=== PATIENT | male | born 1935 | race African-American/Black ===

== ENCOUNTER 2024-01-18 13:15 | Emergency (ER) | payer MEDICARE ==
[2024-01-18 13:49] LABS: Absolute Basophils 0.1 K/uL (0-0.5); Absolute Eosinophils 0.2 K/uL (0-0.5); Absolute Neutrophil 6.3 K/uL (1.8-8.0); Basophils % 0.6 % (0-1.3); Eosinophils % 1.7 % (0-4.4); Hematocrit 40.9 % (39.6-49.0); Hemoglobin 13.9 g/dL (13.6-17.9); Lymphocytes % 20.7 % (15.3-44.8); MCH 31.7 pg (27.0-35.0); MCV 93.3 fL (80-100); MPV 7.8 fL (7.6-11.3); Monocytes % 10.5 % (3.3-12.3); Neutrophils % 66.5 % (41.7-73.7); Nucleated Red Blood Cells % 0.2 % (0-0); Platelets 175 thou/uL (152-406); RBC Red Blood Cell Count 4.38 M/uL (4.33-5.43); Red Cell Distribution Width 13.9 % (12.1-15.2)
[2024-01-18 14:05] LABS: Albumin 3.5 g/dL (3.4-5.0); Albumin/Globulin Ratio 0.8 (1.1-1.8); Anion Gap 7.8 mEq/L (5.0-15.0); Bilirubin Total 1.1 mg/dL (0.2-1.0); Globulin 4.6 g/dL (2.3-3.5); Potassium 3.8 mEq/L (3.5-5.1); Protein, Total 8.1 g/dL (6.4-8.2)
--- NOTE | 2024-01-18 14:56 | RAD REPORT ---
EXAM DESCRIPTION: CT - Abdomen Pelvis W Contrast - 01/18/2024 2:20 pm CLINICAL HISTORY: rectal bleeding COMPARISON: No comparisons TECHNIQUE: Thin cut axial CT imaging of the abdomen and pelvis was performed following intravenous a dministration of 100 mL Isovue 300. Multiplanar reformats were generated and reviewed. All CT scans are performed using dose optimization technique as appropriate and may include automated exposure control or mA/KV adjustment according to patient size. FINDINGS: No suspicious findings in the lung bases. The liver, spleen, adrenal glands, and pancreas show no suspicious findings. Gallbladder and biliary tree are also without suspicious finding. Symmetric renal function is seen with no hydronephrosis or suspicious renal mass. Left lower pole 3.3 cm fluid density cyst. No dilated bowel loops or bowel wall thickening. Mild colonic diverticulosis. No free air, free fluid or inflammatory stranding. No hernia, mass or bulky lymphadenopathy. The urinary bladder is suboptim ally distended limiting evaluation. Prostatomegaly with calcifications, and an ovoid fluid collection along the right superior aspect of the prostate, with some mass effect along the bladder neck, measu ring 3.2 x 2.0 cm in greatest axial dimensions. No suspicious bony findings. IMPRESSION: No acute intra-abdominal process. No suspicious abdominal masses, with attention to the colon/rectum. Mild colonic diverticulosis witho ut evidence of acute diverticulitis. Moderate prostatomegaly with an ovoid 3.2 cm collection along the superior aspect of the prostate, fa voring cystic degeneration of a transitional zone nodule in the setting of benign prostatic hyperplas ia. This exerts some mass effect upon the neck of the bladder. If the patient demonstrates relevant s igns/symptoms, additional urologic evaluation would be helpful.
--- NOTE | 2024-01-18 15:12 | EDPHYS ---
Physician Documentation [facility] Name: Chris Yun Age: 88 yrs Sex: Male : 1935 Arrival Date: 01/18/2024 Time: 13:15 Bed 19 Private MD: ED Physician Saud Calderon HPI: 01/17 13:38 This 88 yrs old Black Male presents to ER via Ambulatory with complaints of Rectal ec2 Bleeding. 13:38 Patient arrives today for evaluation of rectal bleeding. Patient reports that he was ec2 urinating then had bright red blood per rectum. Patient reports no previous issues with rectal bleeding, colonoscopy her last had was approximately 8 years ago. Patient reports no anemia symptoms. No blood thinners. Patient reports no GI pathology.. Historical: - Allergies: 13:27 No Known Allergies; as6 - PMHx: 13:27 Hypertensive disorder; as6 - PSHx: 13:27 back; wrist; as6 - Immunization history:: Adult Immunizations up to date. - Infectious Disease History:: Denies. - Social history:: Smoking status: Patient/guardian denies using tobacco, but has a distant history of tobacco abuse. ROS: 13:38 Constitutional: as per hpi ec2 Exam: 13:38 Constitutional: GEN: NAD Head: atraumatic Eyes: EOMI Ears: External ears are ec2 normal. CV: regular rate LUNGS: no respiratory distress ABD: non-distended. Soft, nontender, not guarding, not rigid : Performed under supervision, JUS, RN, rectal bleeding present, hemorrhoid present. SKIN: no evidence of rashes MSK: no evidence of trauma NEURO: moves all extremities equally Vital Signs: 13:26 BP 139 / 80; Pulse 67; Resp 18 S; Temp 97.9(O); Pulse Ox 98% on R/A; Weight 120.2 kg as6 (R); Height 6 ft. 4 in. (R); Pain 0/10; 15:17 BP 122 / 82; Pulse 71; Resp 16; Pulse Ox 100% on R/A; mb9 13:26 Body Mass Index 32.26 (120.20 kg, 193.04 cm) as6 13:26 Pain Scale: Adult as6 MDM: 13:36 Patient medically screened. ec2 13:38 Data reviewed: vital signs. ED course: Patient arrives today for evaluation of rectal ec2 bleeding. Examination remarkable for hemorrhoid as noted above. Will obtain lab work, CT imaging to evaluate for diverticulosis. Will evaluate for anemia as well. Suspect hemorrhoids as a source of the patient's bleeding. Additionally patient without any significant alcohol abuse history, doubt liver pathology such as cirrhosis.. 14:32 ED course: CBC is reassuring without evidence of anemia, metabolic profile shows ec2 appropriate renal function, appropriate electrolytes. Lipase within normal ranges. Pending CT imaging. . 15:04 ED course: CT imaging shows diverticulosis without diverticulitis, incidental prostate ec2 findings noted. . 15:11 ED course: On reassessment patient is well-appearing in no acute distress, I reexamined ec2 the rectum and no persistent bleeding. I offered inpatient hospitalization versus outpatient management and patient elected to return to home. [facility]. Patient states that he otherwise is feels well and is asymptomatic. I instructed him on strict return precautions and to return if he has any more excessive bleeding or begins to have anemic symptoms. . 01/17 13:36 Order name: CBC with Diff; Complete Time: 14:31 ec2 01/17 13:36 Order name: CMP; Complete Time: 14:31 ec2 01/17 13:36 Order name: Lipase; Complete Time: 14:31 ec2 01/17 13:36 Order name: CT Abd/Pelvis - IV Contrast Only; Complete Time: 15:03 ec2 01/17 13:36 Order name: IV Saline Lock; Complete Time: 13:41 ec2 01/17 13:36 Order name: Labs collected and sent; Complete Time: 13:41 ec2 Administered Medications: No medications were administered Disposition Summary: 01/18/24 15:11 Discharge Ordered Problem: new ec2 Symptoms: have improved ec2 Condition: Stable ec2 Diagnosis - Rectal Bleeding ec2 - Unspecified hemorrhoids ec2 - Diverticulosis of large intestine without perforation or abscess with bleeding ec2 Followup: ec2 - With: Private Physician - When: - Reason: Re-evaluation by your physician Followup: ec2 - With: Shay Mauro MD - When: - Reason: Recheck today's complaints Discharge Instructions: - Discharge Summary Sheet ec2 - Diverticulosis ec2 - Hemorrhoids ec2 Forms: - Medication Reconciliation Form ec2 - Thank You Letter ec2 - Antibiotic Education ec2 - Prescription Opioid Use ec2 - Patient Portal Instructions ec2 - Leadership Thank You Letter ec2 Signatures: Dispatcher [employer] Kunal Flores RN RN as6 Saud Calderon MD MD ec2 Corrections: (The following items were deleted from the chart) 13:28 13:27 PMHx: Hypothyroidism; as6 as6 13:37 13:37 Abdomen Pelvis W Con+CT.RAD.BRZ ordered. FELISA ROBERTO
--- NOTE | 2024-01-18 15:12 | ER ---
Nurse's Notes [facility] Name: Chris Yun Age: 88 yrs Sex: Male : 1935 Arrival Date: 01/18/2024 Time: 13:15 Bed 19 Private MD: Diagnosis: Unspecified hemorrhoids;Diverticulosis of large intestine without perforation or abscess with bleeding Presentation: 01/17 13:28 Chief complaint: Patient states: bleeding rectum that started today. Coronavirus as6 screen: At this time, the client does not indicate any symptoms associated with coronavirus-19. Ebola Screen: No symptoms or risks identified at this time. Initial Sepsis Screen: Does the patient meet any 2 criteria? No. Patient's initial sepsis screen is negative. Does the patient have a suspected source of infection? No. Patient's initial sepsis screen is negative. Risk Assessment: Do you want to hurt yourself or someone else? Patient reports no desire to harm self or others. Onset of symptoms was January 18, 2024. 13:28 Acuity: RAMSEY 3 as6 13:28 Method Of Arrival: Ambulatory as6 Triage Assessment: 13:26 General: Appears in no apparent distress. Behavior is calm, cooperative. Pain: Denies as6 pain. Historical: - Allergies: 13:27 No Known Allergies; as6 - PMHx: 13:27 Hypertensive disorder; as6 - PSHx: 13:27 back; wrist; as6 - Immunization history:: Adult Immunizations up to date. - Infectious Disease History:: Denies. - Social history:: Smoking status: Patient/guardian denies using tobacco, but has a distant history of tobacco abuse. Screenin:24 [facility] ED Fall Risk Assessment (Adult) History of falling in the last 3 months, mb9 including since admission No falls in past 3 months (0 pts) Confusion or Disorientation No (0 pts) Intoxicated or Sedated No (0 pts) Impaired Gait No (0 pts) Mobility Assist Device Used No (0 pt) Altered Elimination No (0 pt) Score/Fall Risk Level 0 - 2 = Low Risk Oriented to surroundings, Maintained a safe environment, Educated pt \T\ family on fall prevention, incl call for assistance when getting out of bed. Abuse screen: Denies threats or abuse. Nutritional screening: No deficits noted. Tuberculosis screening: No symptoms or risk factors identified. Assessment: 13:42 General: Appears in no apparent distress. Behavior is calm, cooperative, appropriate mb9 for age. Pain: Denies pain. Neuro: Dalal Agitation-Sedation Scale (RASS): 0 - Alert and Calm Level of Consciousness is awake, alert, obeys commands, Oriented to person, place, time, situation, Appropriate for age. Cardiovascular: Patient's skin is warm and dry. Respiratory: Airway is patent Respiratory effort is even, unlabored, Respiratory pattern is regular, symmetrical. GI: Abdomen is round non-distended, Bowel sounds present X 4 quads. Abd is soft and non tender X 4 quads. Reports rectal bleeding. : No signs and/or symptoms were reported regarding the genitourinary system. EENT: No signs and/or symptoms were reported regarding the EENT system. Derm: Skin is pink, warm \T\ dry. Musculoskeletal: Range of motion: intact in all extremities. 15:17 Reassessment: No changes from previously documented assessment. Patient and/or family mb9 updated on plan of care and expected duration. Pain level reassessed. Patient is alert, oriented x 3, equal unlabored respirations, skin warm/dry/pink. Vital Signs: 13:26 BP 139 / 80; Pulse 67; Resp 18 S; Temp 97.9(O); Pulse Ox 98% on R/A; Weight 120.2 kg as6 (R); Height 6 ft. 4 in. (R); Pain 0/10; 15:17 BP 122 / 82; Pulse 71; Resp 16; Pulse Ox 100% on R/A; mb9 13:26 Body Mass Index 32.26 (120.20 kg, 193.04 cm) as6 13:26 Pain Scale: Adult as6 ED Course: 13:18 Patient arrived in ED. mg5 13:20 Saud Calderon MD is Attending Physician. ec2 13:21 Lita Nichols RN is Primary Nurse. mb9 13:21 Arm band placed on. mb9 13:24 Placed in gown. Bed in low position. Call light in reach. Side rails up X 1. Provided mb9 Education on: pres call light if needing anything. Client placed on continuous cardiac and pulse oximetry monitoring. NIBP monitoring applied. handtools repairer on. Door closed. Noise minimized. Warm blanket given. 13:28 Triage completed. as6 13:41 CBC with Diff Sent. mb9 13:41 CMP Sent. mb9 13:41 Lipase Sent. mb9 13:42 Inserted saline lock: 22 gauge in left forearm, using aseptic technique. Blood mb9 collected. 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 mb9 14:22 CT Abd/Pelvis - IV Contrast Only In Process Unspecified. EDMS 15:11 Shay Mauro MD is Referral Physician. ec2 15:12 IV discontinued, intact, bleeding controlled, No redness/swelling at site. Pressure mb9 dressing applied. Administered Medications: No medications were administered Medication: 13:24 VIS not applicable for this client. mb9 Outcome: 15:11 Discharge ordered by . ec2 15:17 Discharged to home ambulatory, with family, mb9 15:17 Condition: stable 15:17 Discharge instructions given to patient, family, Instructed on discharge instructions, follow up and referral plans. Demonstrated understanding of instructions, follow-up care, 15:17 Patient left the ED. mb9 Signatures: Dispatcher [employer] Kunal Flores RN RN as6 Lita Nichols RN RN mb9 Bria Escobar mg5 Saud Calderon MD MD ec2 Corrections: (The following items were deleted from the chart) 13:28 13:27 PMHx: Hypothyroidism; as6 as6
[2024-01-18 19:17] VITALS: BP 122/82; TEMP 97.9; O2SAT 100
== END 2024-01-18 15:17 | disposition home or self-care (01) ==
LOC: ER 13:15
DX: K64.9 Unspecified hemorrhoids (principal); K57.30 Diverticulosis of large intestine without perforation or abscess without bleeding; I10 Essential (primary) hypertension
CPT/HCPCS: 85025; 36415; 83690; 80053; 74177; Q9967